=== PATIENT | female | born 1960 | race Two or more races ===

== ENCOUNTER 2021-07-23 13:05 | Emergency (ER) | payer OTHER ==
[~2021-07-23] VITALS: Ht 157.5 cm; Wt 54.4 kg
[~2021-07-23 13:05] MED LIST: CELEXA10 MG PO; KEPPRA100 MG/ML PO; LANTUS SOLOSTAR3 ML SQ; NOVOLOG100 U/M1 SQ
[2021-07-23] MEDS ORDERED: GRALISE600 MG (13:15)
[2021-07-23] MEDS ORDERED: EPANED1 MG/1 M1 (13:15)
[2021-07-23] MEDS ORDERED: CLONAZEPAM1 M1 (13:15)
[2021-07-23] MEDS ORDERED: AMITRIPTYLINE H50 MG (13:15)
[2021-07-23] MEDS ORDERED: CLINDAMYCI300 MG/51 IV (13:16)
== END 2021-07-23 15:23 | disposition home or self-care (01) ==
LOC: ER 13:05
DX: B35.4 Tinea corporis (principal)